=== PATIENT | male | born 1935 | race Caucasian/White ===

== ENCOUNTER 2016-03-03 09:16 | Inpatient (IN) | payer MEDICARE ==
[2016-03-03] MEDS ORDERED: NITROGLYCERINE 2 % OINTMENT PACK TOP ONE (10:00)
[2016-03-03 10:02] LABS: AUTOMATED BASOPHIL 0.8 % (0-2); AUTOMATED EOSINOPHIL 2.3 % (0-5); AUTOMATED LYMPH 18.6 % (17-44); AUTOMATED MONOCYTE 7.8 % (3-10); AUTOMATED NEUTROPHIL 70.5 % (45-76); MPV 8.9 fL (7.4-10.4)
--- NOTE | 2016-03-03 10:02 | EDPRACDOC ---
- General Information Information Source: Patient Mode of Arrival: Car - History of Present Illness Onset: this am HPI: Pt states he awoke around 230am to use restroom and had L sided chest pain. Denies fever, cough, congestion, sob, abd pain, n/v, changes in bowel or bladder , leg swelling, rash. States cath 5-6 yrs ago, unknown recent stress. Pt took 325mg ASA this morning. Chest Pain Location: Reports: Left Chest Pain Radiation: Reports: None Symptoms Occur: Reports: While asleep Cardiac Risk Factors: Reports: Diabetes Cardiac History of: Reports: Valve Disease, Cardiac Cath, Stress Test, CABG Pain Came On: Reports: On Awakening Pain Status: Present Now Pain Description: Reports: Sharp, Aching Pain Severity: Moderate Pain Worsens With: Reports: Nothing Pain Improves With: Reports: Nothing Associated Signs and Symptoms: Reports: None <Izabel Culp - Last Filed: 03/03/16 11:07> - History of Present Illness HPI: MD NOTE SEEN AND EXAMINED; RECORDS REVIEWED. TIGHTNESS AND PRESSURE. UNSURE OF LAST STRESS. HAPPENED LAST NIGHT. ASKED FOR RECORDS FROM [facility]. DENIES SHOB OR SWEATING. PER DR. PAYAN NO RECENT STRESS <Dayton Daugherty - Last Filed: 03/03/16 11:41> - General Information Chief Complaint: Chest Pain Stated Complaint: ABNORMAL EKG Time Seen by Provider: 03/03/16 09:49 Home Medications: Home Medications Ascorbic Acid [Vitamin C] 500 mg PO DAILY 03/03/16 Aspirin [Ana Aspirin] 325 mg PO DAILY 03/03/16 Atorvastatin Calcium [Lipitor] 5 mg PO DAILY 03/03/16 Calcium Carbonate/Vitamin D3 [Calcium 500 mg Chewable Tablet] 1 each PO DAILY Cyanocobalamin (Vitamin B-12) [B-12] 500 mcg PO DAILY 03/03/16 Insulin Glargine [Lantus Pen] 18 - 20 units SQ HS 03/03/16 Metformin HCl [Metformin HCl ER] 750 mg PO BID 03/03/16 Metoprolol Succinate (XL) [Toprol Xl] 25 mg PO DAILY 03/03/16 Multivitamin [One Daily Essential] 1 each PO DAILY 03/03/16 [place] Fatty Acids/Fish Oil [Fish Oil 1,000 mg Capsule] 1 each PO DAILY Ramipril [Altace] 2.5 mg PO DAILY 03/03/16 Tamsulosin HCl [Flomax] 0.4 mg PO DAILY 03/03/16 Allergies/Adverse Reactions: Allergies Allergy/AdvReac Type Severity Reaction Status Date / Time No Known Allergies Allergy Verified 03/03/16 10:46 ED Past Medical History - History Reviewed Yes Nurses notes reviewed and agree except as marked - Patient Medical History Cardiac History: Reports: CABG (2V CABG, VALVE REPLACEMENT), Hypercholesterolemia Musculoskeletal History: Reports: Arthritis Systemic History: Denies: Cancer Surgical History: Reports: CABG (2V CABG, VALVE REPLACEMENT) - Social Medical History Smoking Status: Never smoker ETOH: None Substance Abuse: None <Izabel Culp - Last Filed: 03/03/16 11:07> EDM Review of Systems - Review of Systems Constitutional: No Symptoms Reported. negative: Fever, Chills, Weakness, Fatigue, Loss of Appetite Ears: No Symptoms Reported. negative: Pain, Hearing Loss, Drainage, Ear Pulling Throat: No Symptoms Reported. negative: Pain, Swelling Nose: No Symptoms Reported. negative: Congestion, Bleeding, Discharge, Injection, Swelling, Deformity, Ecchymosis, Tender, Abrasion, Laceration Mouth: No Symptoms Reported. negative: Pain, Drooling Respiratory: No Symptoms Reported. negative: Cough, Brassy Cough, Barky Cough, Shortness of Breath, Wheezing, Hemoptysis Cardiovascular: Chest Pain Gastrointestinal: No Symptoms Reported. negative: Pain, Constipation, Nausea, Vomiting, Diarrhea, Melena, Formula Intolerance Genitourinary: No Symptoms Reported. negative: Dysuria, Hematuria, Frequency, Discharge, Bleeding, Testicular Pain, Neurological: No Symptoms Reported. negative: Headache, Dizziness, Seizure, Numbness, Weakness, Speech Difficulty, Gait Difficulty Musculoskeletal: No Symptoms Reported. negative: Neck, Chestwall, Ribs, Back, Shoulder, Arm, Elbow, Forearm, Wrist, Hand, Pelvis, Hip, Femur, Knee, Leg, Ankle , Foot Integumentary: No Symptoms Reported. negative: Itching, Rash, Bruising, Wound Allergic/Immunologic: No Symptoms Reported. negative: Hives, Itching Hematologic: No Symptoms Reported. negative: Lymphadenopathy, Easy Bruising, Easy Bleeding Psychiatric: No Symptoms Reported. negative: Anxiety, Depression, Hallucinations, Insomnia, Suicidal <Izabel Culp - Last Filed: 03/03/16 11:07> - Physical Exam Constitutional: Alert Oriented to: Time, Person, Place Last recorded Vital Signs: Last Vital Signs Temp 97.5 F 03/03/16 09:26 Pulse 70 03/03/16 09:50 Resp 18 03/03/16 09:50 BP 174/67 03/03/16 09:50 Pulse Ox 96 03/03/16 09:50 Oxygen Pulse Oxygen Saturation 96 O2 Device Room Air Oxygen Flow Rate Fraction of Inspired Oxygen ( FIO2) - HEENT Head: Normal ( normocephalic) Eye Exam: Normal (PERRL, EOMI, Sclera white) Neck: Normal (FROM, trachea at midline) - Respiratory/Cardiovascular Respiratory: Normal - CTA (BBS clear to auscultation without adventitious sounds ) Cardiovascular: Systolic murmur - GI Auscultation: Normal (NABS) Palpation: Normal (Soft,No rebound or guarding, non distended) Tenderness: Non tender - Musculoskeletal Back: Normal (Non-Tender) Extremities: Normal (Normal tone, Pulses 2+ No cyanosis or edema, FROM) - Integumentary Skin: Normal, Warm, Dry Lymphatics: Normal (no adenopathy) - Neurologic Memory Impaired: Normal Motor Function: Normal (Normal tone, Pulses 2+ No cyanosis or edema, FROM) Mood Description: Normal Perception: Normal <Izabel Culp - Last Filed: 03/03/16 11:07> - Physical Exam Last recorded Vital Signs: Last Vital Signs Temp 97.5 F 03/03/16 09:26 Pulse 65 03/03/16 10:03 Resp 18 03/03/16 10:03 BP 174/67 03/03/16 10:03 Pulse Ox 94 03/03/16 10:03 Oxygen Pulse Oxygen Saturation 94 O2 Device Room Air Oxygen Flow Rate Fraction of Inspired Oxygen ( FIO2) <Dayton Daugherty - Last Filed: 03/03/16 11:41> ED Chest Pain Exam - Respiratory/Cardiovascular Respiratory: Normal - CTA (clear to auscultation without adventitious sounds) Cardiovascular/Chest: Normal (RRR without murmur, gallop or rub) Radial Pulse: Normal Edema: negative: 1+, 2+, 3+, 4+, 5, 6 Chest Palpation: Normal (No chest tenderness) <Izabel Culp - Last Filed: 03/03/16 11:07> - Differential Diagnosis Chest wall pain, Myocardial infarction, Pneumonia - Action Patient received Aspirin within last 24 hours?: Yes ASA given in the ED: No - Results 03/03/16 09:43 03/03/16 09:43 - EKG EKG #1 EKG Time: 09:26 Rate: bpm: 70 [place]: Normal Rhythm: NSR, PACs Block: 1, AVB, RBBB ST: Nonsp Comparison: 01/29/14 (no significant change) - Diagnostic Imaging Chest Image interpreted by: Radiologist IMPRESSION: Cardiomegaly. Status post median sternotomy. Small hazy right base medially atelectasis or infiltrate. No pulmonary edema. <Izabel Culp - Last Filed: 03/03/16 11:07> - Results 03/03/16 09:43 03/03/16 09:43 WBC 7.5 xk/uL (3.8-10.8) 03/03/16 09:43 RBC 4.69 xM/uL (4.70-6.10) L 03/03/16 09:43 Hgb 13.3 g/dL (14.0-18.0) L 03/03/16 09:43 Hct 39.3 % (42-52) L 03/03/16 09:43 MCV 84 fL (80-94) 03/03/16 09:43 MCH 28.3 pg (27-32) 03/03/16 09:43 MCHC 33.8 g/dl (33-36) 03/03/16 09:43 RDW 14.7 % (11.5-14.5) H 03/03/16 09:43 Plt Count 150 xk/uL (130-400) 03/03/16 09:43 MPV 8.9 fL (7.4-10.4) 03/03/16 09:43 Neut % (Auto) 70.5 % (45-76) 03/03/16 09:43 Lymph % (Auto) 18.6 % (17-44) 03/03/16 09:43 [place] % (Auto) 7.8 % (3-10) 03/03/16 09:43 Eos % (Auto) 2.3 % (0-5) 03/03/16 09:43 Baso % (Auto) 0.8 % (0-2) 03/03/16 09:43 Absolute Neuts (auto) 5.25 xk/uL (1.7-8.2) 03/03/16 09:43 Absolute Lymphs (auto) 1.35 xk/uL (0.65-4.75) 03/03/16 09:43 PT 11.3 SEC (9.2-11.2) H 03/03/16 09:43 INR 1.1 03/03/16 09:43 APTT 28.2 SEC (22-35) 03/03/16 09:43 Sodium 134 mEq/L (137-146) L 03/03/16 09:43 Potassium 4.7 mEq/L (3.5-5.1) 03/03/16 09:43 Chloride 98 mEq/L (98-107) 03/03/16 09:43 Carbon Dioxide 28 mMOL/L (22-33) 03/03/16 09:43 Anion Gap 13 mEq/L (8-16) 03/03/16 09:43 BUN 20 MG/DL (9-20) 03/03/16 09:43 Creatinine 0.60 MG/DL (0.66-1.25) L 03/03/16 09:43 Estimated GFR (MDRD) > 60 mL/min (>=60) 03/03/16 09:43 Glucose 136 MG/DL (70-99) H 03/03/16 09:43 Calculated Osmolality 263 MOs/Kg (270-290) L 03/03/16 09:43 Calcium 9.1 MG/DL (8.4-10.2) 03/03/16 09:43 Total Bilirubin 1.0 MG/DL (0.2-1.3) 03/03/16 09:43 AST 59 IU/L (17-59) 03/03/16 09:43 ALT 59 IU/L (21-72) 03/03/16 09:43 Alkaline Phosphatase 84 IU/L (50-160) 03/03/16 09:43 Total Protein 7.2 G/DL (6.3-8.2) 03/03/16 09:43 Albumin 4.3 G/DL (3.5-5.0) 03/03/16 09:43 Lab Results 03/03/16 03/03/16 03/03/16 09:43 09:43 09:43 WBC 7.5 RBC 4.69 L Hgb 13.3 L Hct 39.3 L MCV 84 MCH 28.3 MCHC 33.8 RDW 14.7 H Plt Count 150 MPV 8.9 Neut % (Auto) 70.5 Lymph % (Auto) 18.6 [place] % (Auto) 7.8 Eos % (Auto) 2.3 Baso % (Auto) 0.8 Absolute Neuts (auto) 5.25 Absolute Lymphs (auto) 1.35 PT 11.3 H INR 1.1 APTT 28.2 Sodium 134 L Potassium 4.7 Chloride 98 Carbon Dioxide 28 Anion Gap 13 BUN 20 Creatinine 0.60 L Estimated GFR (MDRD) > 60 Glucose 136 H Calculated Osmolality 263 L Calcium 9.1 Total Bilirubin 1.0 AST 59 ALT 59 Alkaline Phosphatase 84 Total Protein 7.2 Albumin 4.3 Laboratory Results - last 24 hr 03/03/16 03/03/16 03/03/16 09:43 09:43 09:43 WBC 7.5 RBC 4.69 L Hgb 13.3 L Hct 39.3 L MCV 84 MCH 28.3 MCHC 33.8 RDW 14.7 H Plt Count 150 MPV 8.9 Neut % (Auto) 70.5 Lymph % (Auto) 18.6 [place] % (Auto) 7.8 Eos % (Auto) 2.3 Baso % (Auto) 0.8 Absolute Neuts (auto) 5.25 Absolute Lymphs (auto) 1.35 PT 11.3 H INR 1.1 APTT 28.2 Sodium 134 L Potassium 4.7 Chloride 98 Carbon Dioxide 28 Anion Gap 13 BUN 20 Creatinine 0.60 L Estimated GFR (MDRD) > 60 Glucose 136 H Calculated Osmolality 263 L Calcium 9.1 Total Bilirubin 1.0 AST 59 ALT 59 Alkaline Phosphatase 84 Total Protein 7.2 Albumin 4.3 Laboratory Results 03/03/16 09:43 03/03/16 09:43 <Dayton Daugherty - Last Filed: 03/03/16 11:41> - Departure Education/Counseling Given To: Patient Education/Counseling Given Regarding: Diagnosis, Treatment - Physician Consulted Cardiology Time Called: 10:33 Provider Called: Varghese R Revankar Time Manager Private Returned Call: 10:33 (Will see in ED) <Izabel Culp - Last Filed: 03/03/16 11:07> <Dayton Daugherty - Last Filed: 03/03/16 11:41> - Departure Condition: Stable Final Diagnosis: Chest pain Qualifiers: Chest pain type: unspecified Qualified Code(s): R07.9 - Chest pain, unspecified Instructions: Chest Pain (ED) Referrals: Sarita Parker MD [Primary Care Provider] - One Week
[2016-03-03 10:16] LABS: PARTIAL THROMB. TIME 28.2 SEC (22-35); PT-INR 1.1
[2016-03-03 10:20] LABS: BLOOD UREA NITROGEN 20 MG/DL (9-20); CALCIUM 9.1 MG/DL (8.4-10.2); CALCULATED OSMOLALITY 263 MOs/Kg (270-290); CHLORIDE 98 mEq/L (98-107); GLUCOSE 136 MG/DL (70-99); SODIUM LEVEL 134 mEq/L (137-146); TOTAL PROTEIN 7.2 G/DL (6.3-8.2)
--- NOTE | 2016-03-03 10:50 | DIRPT ---
CLINICAL DATA: Chest pain EXAM: PORTABLE CHEST 1 VIEW COMPARISON: 07/23/2014 FINDINGS: Cardiomegaly is noted. The patient is status post median sternotomy and cardiac valve replacement. No pulmonary edema. Small hazy right basilar medially atelectasis or infiltrate. No pulmonary edema. Atherosclerotic calcifications of thoracic aorta. IMPRESSION: Cardiomegaly. Status post median sternotomy. Small hazy right base medially atelectasis or infiltrate. No pulmonary edema. Electronically Signed By: Andrez Keyes M.D. On: 03/03/2016 10:48
[2016-03-03] MEDS ORDERED: NITROGLYCERINE 0.4 MG TAB SL PRN (12:13)
--- NOTE | 2016-03-03 12:20 | HISTPHYS ---
- Chief Complaint chest pain - History of Present Illness 81 yowm presented emergency room early on today for evaluation of left sided chest discomfort. 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 He reports today after performing those activities he has developed left-sided chest discomfort which she describes as pressure and occasional heaviness, he denies any nausea vomiting sweating or radiation of discomfort, patient denies and dyspnea as well. On detailed questioning patient denies any recent chest symptoms with any kind of physical exertion. Given history of known CAD and previous bypass surgery medical consultation was phoned in for inpatient treatment. - Medical History Cardiac History: Reports: Coronary Artery Disease, Hypertension, Cardiac Catheterization, CABG (2V CABG, VALVE REPLACEMENT), Hypercholesterolemia, Valvular Heart Disease Respiratory History: Reports: No Significant History GI/ History: Reports: Renal Disease, Gastroesophageal Reflux, BPH Musculoskeletal History: Reports: Arthritis, Osteoarthritis Systemic History: Reports: No Significant History, Diabetes. Denies: Cancer Neurological History: Reports: No Significant History Psychological History: Reports: Anxiety - Surgical History Reports: CABG (2V CABG, VALVE REPLACEMENT), Other (aortic valve, shoulder , cts, , back) - Medictions/Allergies Allergies No Known Allergies Allergy (Verified 03/03/16 10:46) Current Medication List: Reviewed Home Medications Ascorbic Acid [Vitamin C] 500 mg PO DAILY 03/03/16 Aspirin [Ana Aspirin] 325 mg PO DAILY 03/03/16 Atorvastatin Calcium [Lipitor] 5 mg PO DAILY 03/03/16 Calcium Carbonate/Vitamin D3 [Calcium 500 mg Chewable Tablet] 1 each PO DAILY Cyanocobalamin (Vitamin B-12) [B-12] 500 mcg PO DAILY 03/03/16 Insulin Glargine [Lantus Pen] 18 - 20 units SQ HS 03/03/16 Metformin HCl [Metformin HCl ER] 750 mg PO BID 03/03/16 Metoprolol Succinate (XL) [Toprol Xl] 25 mg PO DAILY 03/03/16 Multivitamin [One Daily Essential] 1 each PO DAILY 03/03/16 [place]-3 Fatty Acids/Fish Oil [Fish Oil 1,000 mg Capsule] 1 each PO DAILY Ramipril [Altace] 2.5 mg PO DAILY 03/03/16 Tamsulosin HCl [Flomax] 0.4 mg PO DAILY 03/03/16 - Family History Reports: Diabetes, Cardiac Disorders - Social History Travel Outside of [place] in the Last 3 Months?: No Lives: With Family Smoking Status: Never smoker - Review of Systems Constitutional: Weakness Eyes: No Symptoms Reported Ears: No Symptoms Reported Nose: No Symptoms Reported Mouth: No Symptoms Reported Throat/Neck: No Symptoms Reported Respiratory: Dyspnea Cardiovascular: Chest Pain Gastrointestinal: Constipation, Heartburn Genitourinary: Nocturia Neurological: No Symptoms Reported Musculoskeletal:: Arthritis Integumentary: No Symptoms Reported Allergic/Immunologic: No Symptoms Reported Hematologic: No Symptoms Reported Endocrine: No Symptoms Reported Psychiatric: No Symptoms Reported - Physical Exam Vital Signs: Initial Vitals Temperature 97.5 F 03/03/16 09:26 Pulse Rate 62 03/03/16 09:26 Respiratory Rate 16 03/03/16 09:26 Blood Pressure 184/74 H 03/03/16 09:26 Pulse Oxygen Saturation 97 03/03/16 09:26 Constitutional: Alert Oriented to: Time, Person, Place - HEENT Head: Normal Eye: Normal Oropharynx: Normal ENT EAC: Normal TMJ: Normal Nose: No Symptoms Reported Respiratory: Diminished, Rhonchi Cardiovascular: Normal, Systolic murmur - GI Auscultation: Normal Palpation: Normal Tenderness: Non tender Rectal Exam: Deferred - Exam Deferred: Yes - Musculoskeletal Back: Normal Extremities: Normal, Cyanosis Spine: limited range of motion - Integumentary Skin: Normal, Warm, Dry Lymphatics: Normal - Neurologic Memory Impaired: Normal Motor Function: Normal Cranial Nerve: Normal Cerebellar: Normal Mood Description: Normal Thought: Coherent Perception: Normal - Focused CV Perfusion Exam Vital Signs: Last Vital Signs Temp 97.5 F 03/03/16 09:26 Pulse 64 03/03/16 11:45 Resp 16 03/03/16 11:45 BP 157/70 03/03/16 11:45 Pulse Ox 96 03/03/16 11:45 - Diagnostic Findings Allergies No Known Allergies Allergy (Verified 03/03/16 10:46) Last Vital Signs Temp 97.5 F 03/03/16 09:26 Pulse 64 03/03/16 11:45 Resp 16 03/03/16 11:45 BP 157/70 03/03/16 11:45 Pulse Ox 96 03/03/16 11:45 03/03/16 09:43 03/03/16 09:43 Abnormal Lab Results 03/03/16 03/03/16 03/03/16 09:43 09:43 09:43 RBC 4.69 L Hgb 13.3 L Hct 39.3 L RDW 14.7 H PT 11.3 H Sodium 134 L Creatinine 0.60 L Glucose 136 H Calculated Osmolality 263 L [id number] Pept 3630 H Patient Name: FADUMO VALENTE JR LOC: ED : 1935 AGE: 81 Order Date:03/03/16 Date of Service: Report # [id number] Ord Physician: Izabel Culp Exam # [id number] Emergency Physician: Pete Daugherty MD Exam(s): [id number] RAD/DG CHEST PORTABLE CLINICAL DATA: Chest pain EXAM: PORTABLE CHEST 1 VIEW COMPARISON: 07/23/2014 FINDINGS: Cardiomegaly is noted. The patient is status post median sternotomy and cardiac valve replacement. No pulmonary edema. Small hazy right basilar medially atelectasis or infiltrate. No pulmonary edema. Atherosclerotic calcifications of thoracic aorta. IMPRESSION: Cardiomegaly. Status post median sternotomy. Small hazy right base medially atelectasis or infiltrate. No pulmonary edema. Electronically Signed By: Andrez Keyes M.D. On: 03/03/2016 10:48 Electronically - Assessment (1) Chest pain R07.9 - CHEST PAIN, UNSPECIFIED Acute Present on Admission: Yes Qualifiers: Chest pain type: unspecified Qualified Code(s): R07.9 - Chest pain, unspecified Symptoms somewhat atypical. Patient be admitted chest [facility] serial cardiac enzymes and EKGs will be obtained. Will proceed with the nuclear stress test. (2) CAD in [place] artery I25.10 - ATHSCL HEART DISEASE OF [place] CORONARY ARTERY W/O ANG PCTRS Acute Present on Admission: Yes Continue medical therapy. consult Cardiology (3) DM2 (diabetes mellitus, type 2) E11.9 - TYPE 2 DIABETES MELLITUS WITHOUT COMPLICATIONS Chronic Present on Admission: Yes Qualifiers: Diabetes mellitus complication status: with neurologic complications Continue ADA diet and home regimen. Regular insulin coverage (4) Dyslipidemia E78.5 - HYPERLIPIDEMIA, UNSPECIFIED Chronic Present on Admission: Yes Continue Lipitor and fish oil. (5) GERD (gastroesophageal reflux disease) K21.9 - GASTRO-ESOPHAGEAL REFLUX DISEASE WITHOUT ESOPHAGITIS Chronic Present on Admission: Yes Qualifiers: Esophagitis presence: without esophagitis Qualified Code(s): K21.9 - Gastro -esophageal reflux disease without esophagitis continue ppi. (6) HTN (hypertension) I10 - ESSENTIAL (PRIMARY) HYPERTENSION Chronic Present on Admission: Yes Qualifiers: Hypertension type: essential hypertension Qualified Code(s): I10 - Essential (primary) hypertension Stable on meds Case Care Discussed with: Patient, Consultants, Family, Nursing Staff, Respiratory Therapy Total Time: 50 min . Critical Care: No Code: 98654
--- NOTE | 2016-03-03 12:50 | PCM.CARDCO ---
Consultation Date: 03/03/16 Requesting Physician: Dayton Daugherty Office Chair Assembler: Varghese Harvey Consult Reason: Chest Pain - History of Present Illness Patient is a pleasant 81-year-old male. He is well known to me. He has past medical history of coronary artery disease, aortic valve replacement and aortoplasty in the past. He also has diabetes mellitus. He mentions to me that he had heating issue at home and somebody had come in to check it out and he was helping the radiochemical technician lift some stuff subsequently is had chest pain. No orthopnea or PND. He has a very active gentleman. No history of radiation of the symptoms to the neck or to the arms. At the time of my evaluation is alert awake oriented comfortable and in no distress he appears anxious. His is at the bedside. Chief Complaint: chest pain - Past Medical and Surgical History Cardiac History: Reports: No Significant History, Coronary Artery Disease, Hypertension, Cardiac Catheterization, CABG (2V CABG, VALVE REPLACEMENT), Hypercholesterolemia, Valvular Heart Disease, Other ( aortic valve replacement, aortoplasty) Respiratory History: Reports: No Significant History GI/ History: Reports: No Significant History, Renal Disease, Gastroesophageal Reflux, BPH Systemic History: Reports: No Significant History, Diabetes. Denies: Cancer Musculoskeletal History: Reports: No Significant History, Arthritis, Osteoarthritis Psychological History: Reports: No Significant History, Anxiety Neurological History: Reports: No Significant History Past Surgical History: Reports: No Significant History, CABG (2V CABG, VALVE REPLACEMENT), Cardiac Catheterization, Other (aortic valve, shoulder , cts,, back) Allergies No Known Allergies Allergy (Verified 03/03/16 10:46) Home Medications Ascorbic Acid [Vitamin C] 500 mg PO DAILY 03/03/16 Aspirin [Ana Aspirin] 325 mg PO DAILY 03/03/16 Atorvastatin Calcium [Lipitor] 5 mg PO DAILY 03/03/16 Calcium Carbonate/Vitamin D3 [Calcium 500 mg Chewable Tablet] 1 each PO DAILY Cyanocobalamin (Vitamin B-12) [B-12] 500 mcg PO DAILY 03/03/16 Insulin Glargine [Lantus Pen] 18 - 20 units SQ HS 03/03/16 Metformin HCl [Metformin HCl ER] 750 mg PO BID 03/03/16 Metoprolol Succinate (XL) [Toprol Xl] 25 mg PO DAILY 03/03/16 Multivitamin [One Daily Essential] 1 each PO DAILY 03/03/16 [place]-3 Fatty Acids/Fish Oil [Fish Oil 1,000 mg Capsule] 1 each PO DAILY Ramipril [Altace] 2.5 mg PO DAILY 03/03/16 Tamsulosin HCl [Flomax] 0.4 mg PO DAILY 03/03/16 - Social History Travel Outside of [place] in the Last 3 Months?: No Lives: With Family Smoking Status: Never smoker - Family History Reports: No Significant History, Diabetes, Cardiac Disorders - Review of Systems Constitutional: No Symptoms Reported. negative: Fever, Chills, Weakness, Fatigue, Loss of Appetite - Physical Exam Constitutional: Alert Oriented to: Time, Person, Place Exam: Last Vital Signs Temp 97.5 F 03/03/16 09:26 Pulse 64 03/03/16 12:34 Resp 16 03/03/16 12:34 BP 160/68 03/03/16 12:34 Pulse Ox 96 03/03/16 12:34 Intake & Output 03/02/16 03/03/16 03/03/16 23:59 07:59 15:59 Patient's weight 63.049 kg - HEENT Head: Normal ( normocephalic) Eye: Normal (PERRL, EOMI, Sclera white) Nose: No Symptoms Reported. negative: Congestion, Bleeding, Discharge, Injection, Swelling, Deformity, Ecchymosis, Tender, Abrasion, Laceration - Respiratory/Cardiovascular Respiratory: Normal - CTA (clear to auscultation without adventitious sounds) Cardiovascular: Other (S1-S2 heard 2/6 systolic murmur at the apex lungs bilateral air entry abdomen nontender. No cyanosis clubbing or pedal edema On the extremity evaluation. Neurological and musculoskeletal examination nonfocal.) - GI Auscultation: Normal (NABS) Palpation: Normal (Soft,No rebound or guarding, non distended) Tenderness: Non tender - Musculoskeletal Back: Normal (Non-Tender) Extremities: Normal (Normal tone, Pulses 2+ No cyanosis or edema, FROM) - Integumentary Skin: Normal, Warm, Dry Lymphatics: Normal (no adenopathy) - Neurologic Memory Impaired: Normal Mood Description: Normal Perception: Normal - Assessment/Plan (1) CAD in [place] artery I25.10 - ATHSCL HEART DISEASE OF [place] CORONARY ARTERY W/O ANG PCTRS Acute Comment: Patient has had bypass in the remote past. An acute coronary event will be ruled out. (2) Chest pain R07.9 - CHEST PAIN, UNSPECIFIED Acute unspecified R07.9 - Chest pain, unspecified Comment: An acute coronary event will be ruled out. His chest pain has atypical components but in view of the fact that he has known coronary artery disease and diabetes mellitus we will do a Lexiscan sestamibi if his stress test is negative then he can be discharged home as an outpatient follow-up. Patient started having pain symptoms after he helped somebody lift up stuff at home. There is a atypical component to his chest pain however since he has known coronary artery disease and is a diabetic we will evaluate him well before we send him home. (3) DM2 (diabetes mellitus, type 2) E11.9 - TYPE 2 DIABETES MELLITUS WITHOUT COMPLICATIONS Chronic with neurologic complications Comment: Diet was discussed and he vocalized understanding. This is followed by hospitalist service. (4) Dyslipidemia E78.5 - HYPERLIPIDEMIA, UNSPECIFIED Chronic (5) HTN (hypertension) I10 - ESSENTIAL (PRIMARY) HYPERTENSION Chronic essential hypertension I10 - Essential (primary) hypertension Comment: Patient appears anxious and blood pressure is elevated and he might need anxiolytics if it continues to be high. Case Care Discussed with: Patient, Consultants
[2016-03-03] MEDS ORDERED: GLARGINE INSULIN (LANTUS) 100 UNITS/ML PEN SQ SCH (13:00)
[2016-03-03] MEDS ORDERED: Pharmacy Order Set Alert SCH (13:00)
[2016-03-03] MEDS ORDERED: Vaccine Screening Complete SCH (14:00)
[2016-03-03 14:17] LABS: LEUKOCYTES/URINE NEG (NEGATIVE); NITRITE/URINE NEG (NEGATIVE); RBC/URINE 0-2 (0-2); URINE OCCULT BLOOD NEG (NEG/TRACE); WBC/URINE 0-2 (0-2)
[2016-03-03] MEDS ORDERED: ENOXAPARIN 40 MG/0.4 ML PFS SQ SCH (18:00)
[2016-03-03] MEDS: NITROGLYCERINE 2 % OINTMENT PACK TOP SCH (18:08)
[2016-03-03] MEDS: GLARGINE INSULIN (LANTUS) 100 UNITS/ML PEN SQ SCH (20:03)
[2016-03-04] MEDS: NITROGLYCERINE 2 % OINTMENT PACK TOP SCH ×5 (00:04→23:33)
[2016-03-04 03:43] LABS: LDL (calc.) 36.4 MG/DL (<100); VLDL (calc.) 6.6 MG/DL (5-40)
[2016-03-04] MEDS: PANTOPRAZOLE 40 MG TAB PO SCH (06:10)
[2016-03-04] MEDS ORDERED: VITAMIN D3 PO SCH (09:00)
[2016-03-04] MEDS ORDERED: REGADENOSON 0.4 MG/5 ML SYRINGE IV ONE (09:00)
[2016-03-04] MEDS ORDERED: [UNRECOGNIZED DRUG - OTHER] PO SCH (09:00)
[2016-03-04] MEDS ORDERED: SODIUM CHLORIDE 0.9% 10 ML FLUSH FLUSH ONE (09:00)
[2016-03-04] MEDS ORDERED: CALCIUM CARBONATE PO SCH (09:00)
[2016-03-04] MEDS ORDERED: ASPIRIN 325 MG TAB PO SCH (09:00)
[2016-03-04] MEDS ORDERED: ASCORBIC ACID 500 MG PO SCH (09:00)
[2016-03-04] MEDS ORDERED: MULTIVITAMIN PO SCH (09:00)
--- NOTE | 2016-03-04 09:52 | PCM.CARD ---
- Subjective Current Assessment: No New Symptoms (Patient had uneventful night and denies any symptoms. No chest pain orthopnea or PND.) Vital Signs: Last Vital Signs Temp 97.6 F 03/04/16 07:44 Pulse 65 03/04/16 07:44 Resp 17 03/04/16 07:44 BP 153/92 03/04/16 07:44 Pulse Ox 97 03/04/16 07:44 EKG Rhythm: Sinus Rhythm Heart Sounds: S1 & S2 (Cardiac auscultation unchanged lungs bilateral air entry and no pedal edema.) - Assessment/Plan (1) CAD in [place] artery Acute I25.10 - ATHSCL HEART DISEASE OF [place] CORONARY ARTERY W/O ANG PCTRS Present on Admission: Yes Comment/Plan: Coronary artery disease stable. Acute coronary event has been ruled out. Stress testing will further help assess and make management plans. This was discussed with the patient and at length. (2) Chest pain Acute R07.9 - CHEST PAIN, UNSPECIFIED Present on Admission: Yes unspecified R07.9 - Chest pain, unspecified Comment/Plan: This has resolved and we will await the results of the stress test. (3) DM2 (diabetes mellitus, type 2) Chronic E11.9 - TYPE 2 DIABETES MELLITUS WITHOUT COMPLICATIONS Present on Admission: Yes with neurologic complications Comment/Plan: Diet was discussed at length. This is managed by hospitalist. (4) Dyslipidemia Chronic E78.5 - HYPERLIPIDEMIA, UNSPECIFIED Present on Admission: Yes Comment/Plan: Diet was discussed for dyslipidemia. (5) HTN (hypertension) Chronic I10 - ESSENTIAL (PRIMARY) HYPERTENSION Present on Admission: Yes essential hypertension I10 - Essential (primary) hypertension Comment/Plan: Blood pressure is mildly on the elevated side and we will keep a track of this. This could be the fact that he is in the hospital and anxious.
[2016-03-04] MEDS ORDERED: SESTAMIBI 8 MCI V IV ONE (11:06)
[2016-03-04] MEDS: OMEGA-3-ACID ETHYL ESTERS 1000 MG CAP PO SCH (11:44)
[2016-03-04] MEDS: VITAMINS, MULTIPLE CAP PO SCH (11:44)
[2016-03-04] MEDS: CALCIUM CARBONATE + VITAMIN D 500 MG TAB PO SCH (11:44)
[2016-03-04] MEDS: RAMIPRIL 2.5 MG CAP PO SCH (11:45)
[2016-03-04] MEDS: ASCORBIC ACID 500 MG TAB PO SCH ×2 (11:45→11:46)
[2016-03-04] MEDS: ASPIRIN 325 MG TAB PO SCH (11:45)
[2016-03-04] MEDS: METOPROLOL (TOPROL-XL) 25 MG TAB PO SCH (11:45)
[2016-03-04] MEDS: ATORVASTATIN 10 MG TAB PO SCH (11:45)
[2016-03-04] MEDS: CYANOCOBALAMIN (Vitamin B-12) 500 MCG TABLET PO SCH (11:47)
--- NOTE | 2016-03-04 14:14 | CAPUECHO ---
INDICATION: PROSTHETIC AORTIC VALVE HEIGHT: 172.7 cm (5 ft 8.0 in) WEIGHT: 61.7 kg (136.0 lbs) BP: 153/92 BSA: 1.7349 m MEASUREMENTS 2D RVIDd: 4.1 cm LVOT Diam: 2.1 cm LA Diam: 4.6 cm EF Biplane: 43.66 % LAESV MOD A4C: 109.0 ml LAESV MOD A2C: 161.6 ml LAESV Index (A-L): 83.75 ml/m M-MODE IVSd: 1.3 cm LVIDd: 5.4 cm LVPWd: 1.3 cm LVIDs: 4.3 cm EF(Teich): 42 % DOPPLER MV E Jaylen: 0.82 m/s MV A Jaylen: 0.70 m/s MV PHT: 43.79 ms MVA By PHT: 5.02 cm LVOT Vmax: 0.94 m/s AV Vmax: 2.59 m/s TR Vmax: 2.78 m/s TR maxP mmHg RVSP: 40.94 mmHg FINDINGS ------- Procedure:2D images, m-mode, color and spectral Doppler were obtained and reviewed. ECG rhythm:Sinus rhythm with extra systolic beats. Study quality:This was a technically adequate study. Left Ventricle:There is mild concentric left ventricular hypertrophy. Overall left ventricular sys tolic function is low-normal with, an EF between 50 - 55 %. Restrictive LV filling pattern, consi stent with elevated LA pressure. Right Ventricle:The right ventricle is mildly enlarged. The right ventricular systolic function is normal. Left Atrium:The left atrium is moderately dilated. Right Atrium:The right atrium is moderately enlarged. Aortic Valve:There is moderate aortic valve sclerosis. 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 Mitral Valve:Normal appearing mitral valve. Mild mitral regurgitation is present. Tricuspid Valve:The tricuspid valve appears structurally normal. Mild tricuspid regurgitation pres ent. The right ventricular systolic pressure, as measured by Doppler, is 41 mmhg}. Pulmonic Valve:The pulmonic valve is normal. Trace/mild (physiologic) pulmonic regurgitation. Aorta:The aortic root, ascending aorta and aortic arch appear normal. IVC:Normal inferior vena cava with normal inspiratory collapse. Pericardium:There is no pericardial effusion. Plueral effusion present. CONCLUSIONS 1. There is mild concentric left ventricular hypertrophy. 2. Overall left ventricular systolic function is low-normal with, an EF between 50 - 55 %. 3. The right ventricle is mildly enlarged. 4. The left atrium is moderately dilated. 5. 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 Mild increase in gradient across the valve. 6. Mild mitral regurgitation is present. 7. Mild tricuspid regurgitation present. Electronically Signed By: Varghese Harvey MD -- Electronically Signed On: 14:13:13
--- NOTE | 2016-03-04 14:29 | GENMEDPROG ---
Subjective Note: Patient in bed responsive follows commands. Since admission patient had recurrent episodes of left-sided chest discomfort. No syncope or near syncope. Notes Reviewed: Yes Events from last night noted and discussed with Clinical Staff Current Medication List: Reviewed Currently: Reports: MEAD, Reflux Sx DVT Prophylaxis: Yes - Physical Examination Vital Signs and I&O: Last Vital Signs Temp 98.5 F 03/04/16 12:00 Pulse 67 03/04/16 12:00 Resp 16 03/04/16 12:00 BP 180/58 H 03/04/16 12:00 Pulse Ox 97 03/04/16 12:00 Oxygen Pulse Oxygen Saturation 97 O2 Device Room Air Oxygen Flow Rate 2 Fraction of Inspired Oxygen ( FIO2) Intake & Output 03/01/16 03/02/16 03/03/16 03/04/16 23:59 23:59 23:59 23:59 Intake Total 240 Output Total 650 200 Balance -650 40 Patient's weight 61.552 kg 61.802 kg General: Alert, Oriented x3, Cooperative, No acute distress HEENT: Normal, PERRLA, EOMI, Anicteric Sclera Neck: Non-tender, Limited range of motion Lymphatics: Normal Respiratory: Diminished, Rhonchi Cardiovascular: Regular rate, Normal S1, Normal S2, Murmurs GI: Normal bowel sounds, Soft, Non tender, No hepatospenomegaly, No masses Extremities/Musculoskeletal: Normal pulses, Cyanosis, DJD Skin: Warm,Dry and Intact, No rashes, No breakdown, No significant lesion Neurological: Normal Steady Gait, Normal tone Psych/Mental Status: Anxious Lab/DI/Studies Reviewed: Last Vital Signs Temp 98.5 F 03/04/16 12:00 Pulse 67 03/04/16 12:00 Resp 16 03/04/16 12:00 BP 180/58 H 03/04/16 12:00 Pulse Ox 97 03/04/16 12:00 03/03/16 09:43 03/04/16 02:52 Abnormal Lab Results 03/03/16 03/03/16 03/04/16 15:51 20:50 02:52 Glucose 155 H POC Capillary Glucose 136 H 337 H 03/04/16 06:09 Glucose POC Capillary Glucose 100 H - Assessment (1) Unstable angina Acute I20.0 - UNSTABLE ANGINA Comment/Plan: Ruled out [place] by serial cardiac enzymes. Stress test positive for ischemia. Continue medical therapy, cardiology to discuss option of cardiac catheterization (2) CAD in [place] artery Acute I25.10 - ATHSCL HEART DISEASE OF [place] CORONARY ARTERY W/O ANG PCTRS Comment/Plan: Continue medical therapy. Follow by Cardiology (3) DM2 (diabetes mellitus, type 2) Chronic E11.9 - TYPE 2 DIABETES MELLITUS WITHOUT COMPLICATIONS Qualifiers: Diabetes mellitus complication status: with neurologic complications Comment/Plan: Continue ADA diet and home regimen. Regular insulin coverage (4) Dyslipidemia Chronic E78.5 - HYPERLIPIDEMIA, UNSPECIFIED Comment/Plan: Continue Lipitor and fish oil. (5) GERD (gastroesophageal reflux disease) Chronic K21.9 - GASTRO-ESOPHAGEAL REFLUX DISEASE WITHOUT ESOPHAGITIS Qualifiers: Esophagitis presence: without esophagitis Qualified Code(s): K21.9 - Gastro -esophageal reflux disease without esophagitis Comment/Plan: continue ppi. (6) HTN (hypertension) Chronic I10 - ESSENTIAL (PRIMARY) HYPERTENSION Qualifiers: Hypertension type: essential hypertension Qualified Code(s): I10 - Essential (primary) hypertension Comment/Plan: Stable on meds (7) Chest pain Acute R07.9 - CHEST PAIN, UNSPECIFIED Qualifiers: Chest pain type: unspecified Qualified Code(s): R07.9 - Chest pain, unspecified Comment/Plan: In light of positive stress test symptoms most consistent with unstable angina.. Treatment as outlined above Case Care Discussed with: Patient, Consultants, Family, Nursing Staff, Inventory Administrator Education/Counseling Given To: Patient Education/Counseling Given Regarding: Diagnosis, Treatment, Prognosis, Follow Up Total Time: 50 min . Critical Care: No Code: 85298 (12+)
[2016-03-04] MEDS: ENOXAPARIN 60 MG/0.6 ML PFS SQ SCH (15:41)
[2016-03-04] MEDS: MORPHINE 2 MG/ML INJECTION IV PRN (20:20)
[2016-03-04] MEDS: TAMSULOSIN HCL 0.4 MG CAP PO SCH (20:22)
[2016-03-04] MEDS: GLARGINE INSULIN (LANTUS) 100 UNITS/ML PEN SQ SCH (20:23)
--- NOTE | 2016-03-04 23:35 | CAPUCARD ---
LEXISCAN SESTAMIBI REST STRESS SCAN INDICATION: Chest pain. The patient's baseline EKG reveals sinus rhythm, and nonspecific ST-T changes. Resting heart rate 67, blood pressure 160/94 mmHg. The patient received intravenous Lexiscan per protocol. During the test, the patient did not experience any significant symptoms. There were nondiagnostic EKG changes and no arrhythmias. Cardiolite images suggest reversibility in the anterior, inferoseptal, and lateral segments of the left ventricle. There is significant ischemic burden. Ejection fraction calculated at 38%. IMPRESSION: Significant amount of reversibility in the anterior, inferoseptal, and lateral segments of the left ventricle seen. Ejection fraction calculated at 38%. [id number]
[2016-03-05] MEDS: MORPHINE 2 MG/ML INJECTION IV PRN ×3 (02:16→19:26)
[2016-03-05] MEDS: ENOXAPARIN 60 MG/0.6 ML PFS SQ SCH ×2 (02:22→16:05)
[2016-03-05 03:10] LABS: AUTOMATED BASOPHIL 0.4 % (0-2); AUTOMATED EOSINOPHIL 4.1 % (0-5); AUTOMATED LYMPH 19.6 % (17-44); AUTOMATED MONOCYTE 9.9 % (3-10); MPV 9.7 fL (7.4-10.4)
[2016-03-05 03:25] LABS: BLOOD UREA NITROGEN 20 MG/DL (9-20); CALCIUM 8.5 MG/DL (8.4-10.2); CALCULATED OSMOLALITY 256 MOs/Kg (270-290); CHLORIDE 96 mEq/L (98-107); GLUCOSE 129 MG/DL (70-99); SODIUM LEVEL 130 mEq/L (137-146)
[2016-03-05] MEDS: NITROGLYCERINE 2 % OINTMENT PACK TOP SCH ×3 (05:50→16:19)
[2016-03-05] MEDS: PANTOPRAZOLE 40 MG TAB PO SCH (05:50)
[2016-03-05] MEDS: OMEGA-3-ACID ETHYL ESTERS 1000 MG CAP PO SCH (08:02)
[2016-03-05] MEDS: ASPIRIN 325 MG TAB PO SCH (08:02)
[2016-03-05] MEDS: CALCIUM CARBONATE + VITAMIN D 500 MG TAB PO SCH (08:02)
[2016-03-05] MEDS: RAMIPRIL 2.5 MG CAP PO SCH (08:02)
[2016-03-05] MEDS: CYANOCOBALAMIN (Vitamin B-12) 500 MCG TABLET PO SCH (08:02)
[2016-03-05] MEDS: ASCORBIC ACID 500 MG TAB PO SCH (08:03)
[2016-03-05] MEDS: METOPROLOL (TOPROL-XL) 25 MG TAB PO SCH (08:03)
[2016-03-05] MEDS: VITAMINS, MULTIPLE CAP PO SCH (08:03)
[2016-03-05] MEDS: ATORVASTATIN 10 MG TAB PO SCH (08:03)
--- NOTE | 2016-03-05 08:44 | CAPUEKG ---
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
--- NOTE | 2016-03-05 11:21 | PCM.CARD ---
- Subjective Current Assessment: No New Symptoms (Patient states that he had under event for 24 hours. No chest pain orthopnea or PND.) Vital Signs: Last Vital Signs Temp 98.2 F 03/05/16 07:21 Pulse 77 03/05/16 08:58 Resp 20 03/05/16 07:21 BP 146/67 03/05/16 07:21 Pulse Ox 95 03/05/16 10:18 Heart Sounds: S1 & S2 (Cardiac auscultation unchanged lungs bilateral air entry and no pedal edema.) - Assessment/Plan (1) CAD in [place] artery Acute I25.10 - ATHSCL HEART DISEASE OF [place] CORONARY ARTERY W/O ANG PCTRS Present on Admission: Yes Comment/Plan: I discussed again coronary angiography and left heart catheterization. Procedure, benefits and potential risks were explained he and his vocalized understanding and questions were answered to their satisfaction. He will be transferred to [facility] in the morning and further recommendations will be made based on the findings of the aforementioned tests. Secondary prevention stressed. (2) DM2 (diabetes mellitus, type 2) Chronic E11.9 - TYPE 2 DIABETES MELLITUS WITHOUT COMPLICATIONS Present on Admission: Yes with neurologic complications Comment/Plan: Diet was discussed for dyslipidemia (3) Dyslipidemia Chronic E78.5 - HYPERLIPIDEMIA, UNSPECIFIED Present on Admission: Yes Comment/Plan: Lipids reviewed with the patient (4) HTN (hypertension) Chronic I10 - ESSENTIAL (PRIMARY) HYPERTENSION Present on Admission: Yes essential hypertension I10 - Essential (primary) hypertension Comment/Plan: Blood pressure is stable.
--- NOTE | 2016-03-05 15:58 | GENMEDPROG ---
Subjective Note: Patient in bed responsive follows commands. Denies and difficulties breathing PND orthopnea. Still reports occasional left-sided chest pain. Notes Reviewed: Yes Events from last night noted and discussed with Clinical Staff Current Medication List: Reviewed Currently: Reports: MEAD, SOB, Reflux Sx DVT Prophylaxis: Yes - Physical Examination Vital Signs and I&O: Last Vital Signs Temp 98.9 F 03/05/16 12:00 Pulse 71 03/05/16 15:39 Resp 14 03/05/16 12:00 BP 146/65 03/05/16 12:00 Pulse Ox 95 03/05/16 12:00 Oxygen Pulse Oxygen Saturation 95 O2 Device Room Air Oxygen Flow Rate 2 Fraction of Inspired Oxygen ( FIO2) Intake & Output 03/02/16 03/03/16 03/04/16 03/05/16 23:59 23:59 23:59 23:59 Intake Total 480 120 Output Total 650 200 Balance -650 280 120 Patient's weight 61.552 kg 61.802 kg 58.649 kg General: Alert, Oriented x3, Cooperative, No acute distress HEENT: Normal, PERRLA, EOMI, Anicteric Sclera Neck: Non-tender, Limited range of motion. negative: JVD Lymphatics: Normal Respiratory: Diminished, Rhonchi Cardiovascular: Regular rate, Normal S1, Normal S2, Murmurs GI: Normal bowel sounds, Soft, Non tender, No hepatospenomegaly, No masses Extremities/Musculoskeletal: Normal pulses, Cyanosis, DJD Skin: Warm,Dry and Intact, No rashes, No breakdown, No significant lesion Neurological: Normal Steady Gait, Normal tone Psych/Mental Status: Anxious Lab/DI/Studies Reviewed: Last Vital Signs Temp 98.9 F 03/05/16 12:00 Pulse 71 03/05/16 15:39 Resp 03/05/16 12:00 BP 146/65 03/05/16 12:00 Pulse Ox 95 03/05/16 12:00 03/05/16 02:10 03/05/16 02:10 Abnormal Lab Results 03/05/16 03/05/16 02:10 02:10 RBC 4.43 L Hgb 12.5 L Hct 37.2 L Sodium 130 L Chloride 96 L Creatinine 0.60 L Glucose 129 H Calculated Osmolality 256 L - Assessment (1) Unstable angina Acute I20.0 - UNSTABLE ANGINA Comment/Plan: Continue medical therapy. Follow by Cardiology. Cardiac catheterization in the morning. (2) CAD in [place] artery Acute I25.10 - ATHSCL HEART DISEASE OF [place] CORONARY ARTERY W/O ANG PCTRS Comment/Plan: .Continue medical therapy. Follow by Cardiology. For cardiac catheterization in the morning (3) DM2 (diabetes mellitus, type 2) Chronic E11.9 - TYPE 2 DIABETES MELLITUS WITHOUT COMPLICATIONS Qualifiers: Diabetes mellitus complication status: with neurologic complications Comment/Plan: Continue ADA diet and home regimen. Regular insulin coverage (4) Dyslipidemia Chronic E78.5 - HYPERLIPIDEMIA, UNSPECIFIED Comment/Plan: Continue Lipitor and fish oil. (5) GERD (gastroesophageal reflux disease) Chronic K21.9 - GASTRO-ESOPHAGEAL REFLUX DISEASE WITHOUT ESOPHAGITIS Qualifiers: Esophagitis presence: without esophagitis Qualified Code(s): K21.9 - Gastro -esophageal reflux disease without esophagitis Comment/Plan: continue ppi. (6) HTN (hypertension) Chronic I10 - ESSENTIAL (PRIMARY) HYPERTENSION Qualifiers: Hypertension type: essential hypertension Qualified Code(s): I10 - Essential (primary) hypertension Comment/Plan: Stable on meds (7) CHF (congestive heart failure) Acute I50.9 - HEART FAILURE, UNSPECIFIED Qualifiers: Congestive heart failure type: systolic Congestive heart failure chronicity : chronic Qualified Code(s): I50.22 - Chronic systolic (congestive) heart failure Comment/Plan: EF 38%, monitor weight continue salt restricted diet. Continue Richar and beta-gabriele, give iv dose of diuretic today Case Care Discussed with: Patient, Consultants, Family, Nursing Staff, Therapist'S Assistant Education/Counseling Given To: Patient Education/Counseling Given Regarding: Diagnosis, Treatment, Prognosis, Follow Up Total Time: 45 min . Critical Care: No Code: 57517 (12+)
[2016-03-05] MEDS ORDERED: FUROSEMIDE 20 MG/2 ML VIAL IV ONE (16:06)
[2016-03-05] MEDS ORDERED: ONDANSETRON HCL 4 MG/2 ML VIAL IV PRN (19:14)
[2016-03-05] MEDS ORDERED: PROMETHAZINE 25 MG/ML VIAL IV PRN (19:14)
[2016-03-05] MEDS ORDERED: Docusate Sodium 100 MG CAP PO PRN (19:14)
[2016-03-05] MEDS ORDERED: BISACODYL 5 MG TAB PO PRN (19:14)
[2016-03-05] MEDS ORDERED: SIMETHICONE 80 MG TAB PO PRN (19:14)
[2016-03-05] MEDS ORDERED: TEMAZEPAM 15 MG CAP PO PRN (19:14)
[2016-03-05] MEDS ORDERED: SENNA CONCENTRATE TAB PO PRN (19:14)
[2016-03-05] MEDS ORDERED: BENZONATATE 100 MG PERLES PO PRN (19:14)
[2016-03-05] MEDS ORDERED: ACETAMINOPHEN 325 MG SUPP PR PRN (19:14)
[2016-03-05] MEDS ORDERED: ACETAMINOPHEN 325 MG/TAB TABLET PO PRN (19:14)
[2016-03-05] MEDS ORDERED: GUAIFEN 100 MG-DEXTROMETH 10 MG PER 5 ML PO PRN (19:14)
[2016-03-05] MEDS: TAMSULOSIN HCL 0.4 MG CAP PO SCH (21:27)
[2016-03-05] MEDS: GLARGINE INSULIN (LANTUS) 100 UNITS/ML PEN SQ SCH (21:30)
[2016-03-06] MEDS: NITROGLYCERINE 2 % OINTMENT PACK TOP SCH ×3 (00:20→11:47)
[2016-03-06 05:35] VITALS: BMI 19.4
[2016-03-06] MEDS: ENOXAPARIN 60 MG/0.6 ML PFS SQ SCH (06:12)
[2016-03-06] MEDS: OMEGA-3-ACID ETHYL ESTERS 1000 MG CAP PO SCH (07:27)
[2016-03-06] MEDS: PANTOPRAZOLE 40 MG TAB PO SCH (07:27)
[2016-03-06] MEDS: CALCIUM CARBONATE + VITAMIN D 500 MG TAB PO SCH (07:28)
[2016-03-06] MEDS: METOPROLOL (TOPROL-XL) 25 MG TAB PO SCH (07:28)
[2016-03-06] MEDS: ASPIRIN 325 MG TAB PO SCH (07:28)
[2016-03-06] MEDS: RAMIPRIL 2.5 MG CAP PO SCH (07:28)
[2016-03-06] MEDS: ATORVASTATIN 10 MG TAB PO SCH (07:28)
[2016-03-06] MEDS: CYANOCOBALAMIN (Vitamin B-12) 500 MCG TABLET PO SCH (07:28)
[2016-03-06] MEDS: MORPHINE 2 MG/ML INJECTION IV PRN (07:36)
--- NOTE | 2016-03-06 07:37 | PCM.CARD ---
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 negative: Chest Pain, Nausea, Palpitations, Shortness of Breath, Vomiting Vital Signs: Last Vital Signs Temp 98.8 F 03/06/16 04:05 Pulse 78 03/06/16 06:00 Resp 18 03/06/16 04:05 BP 112/55 L 03/06/16 04:05 Pulse Ox 95 03/06/16 04:05 PE: He is alert he is somewhat frail in appearance but does not look acutely ill Respiratory: Normal - CTA Jugular Vein Distention: None Pulse Rhythm: Regular EKG Rhythm: Sinus Rhythm EKG Ectopy: negative: Runs >10 beats Heart Sounds: S1 & S2. negative: S3, S4, Murmur (No edema abdomen soft nondistended pulses are full in the upper extremities.) Lab/DI Results Reviewed: Laboratory Tests 03/03/16 03/03/16 03/03/16 09:43 13:04 15:50 Hgb Hct Plt Count Creatinine Troponin I 0.02 0.01 0.02 03/05/16 03/05/16 02:10 02:10 Hgb 12.5 L Hct 37.2 L Plt Count 130 Creatinine 0.60 L Troponin I Lexiscan myocardial perfusion study 03/04/2016: IMPRESSION: Significant amount of reversibility in the anterior, inferoseptal, and lateral segments of the left ventricle seen. Ejection fraction calculated at 38%. - Assessment/Plan (1) Unstable angina Acute I20.0 - UNSTABLE ANGINA Comment/Plan: Presented to the hospital with unstable angina normal troponin and abnormal myocardial perfusion study with once describes is extensive ischemia ejection fraction 38%. He is planned for coronary arteriography today, he has no dye allergy normal renal function he is compliant with medications and has no contraindication to dual anti-platelet therapy. He will continue treatment aspirin statin beta-gabriele. 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 (2) Dyslipidemia Chronic E78.5 - HYPERLIPIDEMIA, UNSPECIFIED Present on Admission: Yes Comment/Plan: Stable continues current statin (3) HTN (hypertension) Chronic I10 - ESSENTIAL (PRIMARY) HYPERTENSION Present on Admission: Yes essential hypertension I10 - Essential (primary) hypertension Comment/Plan: Stable continue current treatment including GEETHA-inhibitor with CAD and hypertension
--- NOTE | 2016-03-06 09:13 | PCM.DCS92 ---
- Final/Secondary Discharge Diagnosis (1) Unstable angina Acute I20.0 - UNSTABLE ANGINA Present on Admission: Yes Comment: Continue medical therapy. Follow by Cardiology. Cardiac catheterization TODAY. (2) CAD in [place] artery Acute I25.10 - ATHSCL HEART DISEASE OF [place] CORONARY ARTERY W/O ANG PCTRS Present on Admission: Yes Comment: .Continue medical therapy. Follow by Cardiology. For cardiac catheterization this morning (3) DM2 (diabetes mellitus, type 2) Chronic E11.9 - TYPE 2 DIABETES MELLITUS WITHOUT COMPLICATIONS Present on Admission: Yes with neurologic complications Comment: Continue ADA diet and home regimen. Regular insulin coverage (4) Dyslipidemia Chronic E78.5 - HYPERLIPIDEMIA, UNSPECIFIED Present on Admission: Yes Comment: Continue Lipitor and fish oil. (5) GERD (gastroesophageal reflux disease) Chronic K21.9 - GASTRO-ESOPHAGEAL REFLUX DISEASE WITHOUT ESOPHAGITIS Present on Admission: Yes without esophagitis K21.9 - Gastro-esophageal reflux disease without esophagitis Comment: continue ppi. (6) HTN (hypertension) Chronic I10 - ESSENTIAL (PRIMARY) HYPERTENSION Present on Admission: Yes essential hypertension I10 - Essential (primary) hypertension Comment: Stable on meds (7) CHF (congestive heart failure) Acute I50.9 - HEART FAILURE, UNSPECIFIED Present on Admission: Yes systolic chronic I50.22 - Chronic systolic (congestive) heart failure Comment: EF 38%, monitor weight continue salt restricted diet. Continue Richar and beta-gabriele, give iv dose of diuretic today Discharge Disposition: Trans. to Other Hospital Discharge Condition: Serious Cognitive Discharge Status: Unimpaired Fuctional Discharge Status: Independent Physician Follow up/Referrals: Sarita Parker MD [Primary Care Provider] - One Week O2 Device: Room Air Diet at Discharge: Heart Healthy, Low Salt, High Fiber Activity: As Tolerated, Limited, No Heavy Lifting Call Office For: Worsening Symptoms, Fever over 101 F Discontinue use of:: Alcohol, All Illegal Substances, All Types of Tobacco - DC Summary Notes Hospital Course Note:: Discharge summary on patient named FADUMO VALENTE JR admitted to [facility] on 03/03/16 by Antonino Cornejo MD. Date of discharge is []. Patient has initially presented to emergency room on March 03 for evaluation of left-sided chest discomfort associated with exertional dyspnea. Please refer to the admission for further details. Patient was admitted to telemetry floor serial cardiac enzymes and EKGs were obtained and he has ruled out [place] with negative troponins. Patient was seen in consultation by his personal trapper bird and cardioprotective regimen was from optimized. On March 04 patient has undergone nuclear stress test if which was positive for ischemia and anterior inferior septal and lateral segments of left ventricle with significant ischemic burden, EF of 38%. Based on results of stress test cardiac catheterization was recommended and patient was in full agreement with this treatment. During initial stay in hospital patient had few more episodes of left-sided chest discomfort. Overall patient has remained hemodynamically stable and there was no signs of cardiopulmonary compromise. His blood sugar remained under good control with no episodes of hypoglycemia. On on patient is being transferred to [facility] for cardiac catheterization. Total Time: 40 min. Code: 60151 (>30min.) - Physical Exam Vital Signs: Last Vital Signs Temp 98.4 F 03/06/16 08:00 Pulse 71 03/06/16 08:00 Resp 03/06/16 08:00 BP 128/57 L 03/06/16 08:00 Pulse Ox 94 03/06/16 08:00 Oxygen Pulse Oxygen Saturation 94 O2 Device Room Air Oxygen Flow Rate 2 Fraction of Inspired Oxygen ( FIO2) Constitutional: Alert Oriented to: Time, Person, Place - HEENT Head: Normal Eye: Normal Oropharynx: Normal ENT EAC: Normal TMJ: Normal Nose: No Symptoms Reported - Respiratory/Cardiovascular Respiratory: Normal - CTA, Diminished, Rhonchi Cardiovascular: Normal, Systolic murmur - GI Auscultation: Normal Palpation: Normal Tenderness: Non tender Rectal Exam: Deferred - Exam Deferred: Yes - Musculoskeletal Back: Normal Extremities: Normal, Cyanosis - Integumentary Skin: Normal, Warm, Dry Lymphatics: Normal - Neurologic Memory Impaired: Normal Motor Function: Normal Cranial Nerve: Normal Cerebellar: Normal Mood Description: Normal, Anxious Thought: Coherent Perception: Normal - Other Exam Other Exam Findings: Allergies No Known Allergies Allergy (Verified 03/03/16 10:46) 03/05/16 02:10 03/05/16 02:10 Last Vital Signs Temp 98.4 F 03/06/16 08:00 Pulse 71 03/06/16 08:00 Resp 17 03/06/16 08:00 BP 128/57 L 03/06/16 08:00 Pulse Ox 94 03/06/16 08:00 Discharge Home Medication List Ascorbic Acid [Vitamin C] 500 mg PO DAILY 03/03/16 [History Confirmed 03/03/16] Aspirin [Ana Aspirin] 325 mg PO DAILY 03/03/16 [History Confirmed 03/03/16] Atorvastatin Calcium [Lipitor] 5 mg PO DAILY 03/03/16 [History Confirmed ] Calcium Carbonate/Vitamin D3 [Calcium 500 mg Chewable Tablet] 1 each PO DAILY [History Confirmed 03/03/16] Cyanocobalamin (Vitamin B-12) [B-12] 500 mcg PO DAILY 03/03/16 [History Confirmed 03/03/16] Insulin Glargine [Lantus Pen] 18 - 20 units SQ HS 03/03/16 [History Confirmed ] Metformin HCl [Metformin HCl ER] 750 mg PO BID 03/03/16 [History Confirmed 03/03] Metoprolol Succinate (XL) [Toprol Xl] 25 mg PO DAILY 03/03/16 [History Confirmed 03/03/16] Multivitamin [One Daily Essential] 1 each PO DAILY 03/03/16 [History Confirmed 03/03/16] [place]-3 Fatty Acids/Fish Oil [Fish Oil 1,000 mg Capsule] 1 each PO DAILY [History Confirmed 03/03/16] Ramipril [Altace] 2.5 mg PO DAILY 03/03/16 [History Confirmed 03/03/16] Tamsulosin HCl [Flomax] 0.4 mg PO DAILY 03/03/16 [History Confirmed 03/03/16] Home Medications Ascorbic Acid [Vitamin C] 500 mg PO DAILY 03/03/16 Aspirin [Ana Aspirin] 325 mg PO DAILY 03/03/16 Atorvastatin Calcium [Lipitor] 5 mg PO DAILY 03/03/16 Calcium Carbonate/Vitamin D3 [Calcium 500 mg Chewable Tablet] 1 each PO DAILY Cyanocobalamin (Vitamin B-12) [B-12] 500 mcg PO DAILY 03/03/16 Insulin Glargine [Lantus Pen] 18 - 20 units SQ HS 03/03/16 Metformin HCl [Metformin HCl ER] 750 mg PO BID 03/03/16 Metoprolol Succinate (XL) [Toprol Xl] 25 mg PO DAILY 03/03/16 Multivitamin [One Daily Essential] 1 each PO DAILY 03/03/16 [place]-3 Fatty Acids/Fish Oil [Fish Oil 1,000 mg Capsule] 1 each PO DAILY Ramipril [Altace] 2.5 mg PO DAILY 03/03/16 Tamsulosin HCl [Flomax] 0.4 mg PO DAILY 03/03/16 Last Vital Signs Temp 98.4 F 03/06/16 08:00 Pulse 71 03/06/16 08:00 Resp 17 03/06/16 08:00 BP 128/57 L 03/06/16 08:00 Pulse Ox 94 03/06/16 08:00
[2016-03-06] MEDS: VITAMINS, MULTIPLE CAP PO SCH (11:44)
[2016-03-06 11:52] VITALS: BP 144/61; TEMP 97.6
[2016-03-06 12:13] VITALS: PULSE 62
--- NOTE | 2016-03-06 13:20 | CAPUEKG ---
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
== END 2016-03-06 12:38 | disposition short-term general hospital (02) | DRG 311 ==
LOC: ED 09:16 → OBSVTOIN 12:13 → EDINP 12:13 → PCU 15:50
PROVIDERS: ADMIT Internal Medicine; ATTEND Internal Medicine
DX: I20.0 Unstable angina (principal); I50.22 Chronic systolic (congestive) heart failure; E11.49 Type 2 diabetes mellitus with other diabetic neurological complication; I25.810 Atherosclerosis of coronary artery bypass graft(s) without angina pectoris; E78.5 Hyperlipidemia, unspecified; K21.9 Gastro-esophageal reflux disease without esophagitis; I10 Essential (primary) hypertension; Z95.1 Presence of aortocoronary bypass graft; E78.00 Pure hypercholesterolemia, unspecified; N40.0 Benign prostatic hyperplasia without lower urinary tract symptoms; M19.90 Unspecified osteoarthritis, unspecified site; F41.9 Anxiety disorder, unspecified; Z79.899 Other long term (current) drug therapy; Z79.82 Long term (current) use of aspirin; Z79.4 Long term (current) use of insulin; Z95.2 Presence of prosthetic heart valve
CPT/HCPCS: 36415; 71010; 78452; 80048; 80053; 80061; 81001; 82550; 82947; 82962; 83735; 83874; 83880; 84484; 85025; 85610; 85730; 93005; 93017; 93306; 96372; 99284; A4216; A9500; J1650; J1940; J2270; J2405; J2785; J3490